=== PATIENT | female | born 1930 | race Caucasian/White ===

== ENCOUNTER 2016-11-04 03:05 | Inpatient (IN) | payer MEDICARE ==
[2016-11-04] MEDS ORDERED: PHYTONADIONE 10 MG/ML AMP PO ONE (05:52)
[2016-11-04] MEDS ORDERED: PHYTONADIONE 10 MG/ML AMP ONE (06:05)
[2016-11-04] MEDS ORDERED: ACETAMINOPHEN 325 MG TABLET PO PRN (06:26)
[2016-11-04] MEDS ORDERED: ONDANSETRON ODT 4 MG TABLET TL PRN (06:26)
[2016-11-04] MEDS ORDERED: HYDROcod/ACETAM 5/325 MG TABLET PO PRN (06:26)
[2016-11-04] MEDS ORDERED: ONDANSETRON 4 MG/2 ML VIAL IVP PRN (06:26)
[2016-11-04] MEDS ORDERED: PANTOPRAZOLE 40 MG TABLET PO SCH (07:00)
[2016-11-04] MEDS: DEXTROSE 5%-0.9% NACL 1,000 ML IV SCH ×3 (08:34→22:37)
[2016-11-04] MEDS: IPRATROPIUM/ALBUTEROL 3 ML NEB INH SCH ×3 (09:41→21:10)
[2016-11-04] MEDS: POLYETHYLENE GLYCOL 3350 17 GM PACKET PO SCH (09:43)
[2016-11-04] MEDS: PANTOPRAZOLE 40 MG VIAL IVP SCH ×2 (09:51→22:07)
[2016-11-04] MEDS: SODIUM CHLORIDE FLUSH 0.9% 10 ML SYRINGE IVP PRN ×3 (09:56→22:07)
[2016-11-04] MEDS ORDERED: IOPAMIDOL-300 50 ML VIAL PO ONE (10:54)
[2016-11-04] MEDS ORDERED: IOPAMIDOL-300 100 ML VIAL IVP ONE (10:54)
[2016-11-04] MEDS: AZITHROMYCIN 250 MG TABLET PO SCH (12:13)
[2016-11-04] MEDS ORDERED: PHYTONADIONE INJ (ADULT) 5 MG in SODIUM CHLORIDE 0.9% 50 ML IV ONE (15:00)
[2016-11-04] MEDS ORDERED: metroNIDAZOLE 500 MG/100 ML 100 ML IV SCH (15:30)
[2016-11-04] MEDS: SODIUM CHLORIDE FLUSH 0.9% 10 ML SYRINGE IVP SCH ×3 (15:50→22:37)
[2016-11-04] MEDS: cefTRIAXone 2 GM in SODIUM CHLORIDE 0.9% MINIBAG 100 ML IV SCH (17:11)
[2016-11-04] MEDS: metroNIDAZOLE 500 MG/100 ML 100 ML IV SCH (22:37)
[2016-11-05] MEDS: SODIUM CHLORIDE FLUSH 0.9% 10 ML SYRINGE IVP PRN ×3 (00:25→23:38)
[2016-11-05] MEDS: metroNIDAZOLE 500 MG/100 ML 100 ML IV SCH ×4 (05:23→23:38)
[2016-11-05] MEDS: IPRATROPIUM/ALBUTEROL 3 ML NEB INH SCH ×3 (07:55→20:10)
[2016-11-05] MEDS: DEXTROSE 5%-0.9% NACL 1,000 ML IV SCH ×2 (08:20→20:58)
[2016-11-05] MEDS ORDERED: cefTRIAXone 2 GM in SODIUM CHLORIDE 0.9% MINIBAG 100 ML IV SCH (09:00)
[2016-11-05] MEDS: AZITHROMYCIN 250 MG TABLET PO SCH (10:09)
[2016-11-05] MEDS: SODIUM CHLORIDE FLUSH 0.9% 10 ML SYRINGE IVP SCH ×2 (10:09→20:58)
[2016-11-05] MEDS: PANTOPRAZOLE 40 MG VIAL IVP SCH ×2 (10:09→20:58)
[2016-11-05] MEDS: cefTRIAXone 2 GM in SODIUM CHLORIDE 0.9% MINIBAG 100 ML IV SCH (10:11)
[2016-11-05] MEDS: POLYETHYLENE GLYCOL 3350 17 GM PACKET PO SCH (10:19)
[2016-11-06] MEDS: metroNIDAZOLE 500 MG/100 ML 100 ML IV SCH ×4 (05:28→21:57)
[2016-11-06] MEDS: SODIUM CHLORIDE FLUSH 0.9% 10 ML SYRINGE IVP SCH ×3 (05:28→21:50)
[2016-11-06] MEDS: AZITHROMYCIN 250 MG TABLET PO SCH (08:23)
[2016-11-06] MEDS: cefTRIAXone 2 GM in SODIUM CHLORIDE 0.9% MINIBAG 100 ML IV SCH (09:34)
[2016-11-06] MEDS: PANTOPRAZOLE 40 MG VIAL IVP SCH ×2 (09:34→21:50)
[2016-11-06] MEDS: DEXTROSE 5%-0.9% NACL 1,000 ML IV SCH ×2 (10:30→21:50)
[2016-11-06] MEDS: POLYETHYLENE GLYCOL 3350 17 GM PACKET PO SCH (10:31)
[2016-11-06] MEDS: IPRATROPIUM/ALBUTEROL 3 ML NEB INH SCH ×3 (11:00→21:10)
[2016-11-06] MEDS: SACCHAROMYCES BOULARDII 250 MG CAPSULE PO SCH (17:06)
[2016-11-06] MEDS ORDERED: POTASSIUM CHLORIDE 20 MEQ TABLET PO SCH (21:00)
[2016-11-06] MEDS: POTASSIUM CHLOR 10 MEQ/100 ML 100 ML IV SCH (23:46)
[2016-11-07] MEDS: metroNIDAZOLE 500 MG/100 ML 100 ML IV SCH ×2 (04:18→10:36)
[2016-11-07] MEDS: POTASSIUM CHLOR 10 MEQ/100 ML 100 ML IV SCH ×2 (05:28→13:14)
[2016-11-07] MEDS: SODIUM CHLORIDE FLUSH 0.9% 10 ML SYRINGE IVP SCH ×2 (05:33→15:43)
[2016-11-07] MEDS: cefTRIAXone 2 GM in SODIUM CHLORIDE 0.9% MINIBAG 100 ML IV SCH (10:19)
[2016-11-07] MEDS: AZITHROMYCIN 250 MG TABLET PO SCH (10:20)
[2016-11-07] MEDS: SODIUM CHLORIDE FLUSH 0.9% 10 ML SYRINGE IVP PRN (10:20)
[2016-11-07] MEDS: POLYETHYLENE GLYCOL 3350 17 GM PACKET PO SCH (10:20)
[2016-11-07] MEDS: PANTOPRAZOLE 40 MG VIAL IVP SCH (10:20)
[2016-11-07] MEDS: SACCHAROMYCES BOULARDII 250 MG CAPSULE PO SCH (10:20)
[2016-11-07] MEDS: DEXTROSE 5%-0.9% NACL 1,000 ML IV SCH ×2 (10:32→16:02)
[2016-11-07] MEDS: IPRATROPIUM/ALBUTEROL 3 ML NEB INH SCH (10:56)
[2016-11-07] MEDS ORDERED: POTASSIUM CHLORIDE 20 MEQ TABLET PO ONE (16:30)
== END 2016-11-07 16:35 | disposition home or self-care (01) | DRG 378 ==
DX: K57.31 Diverticulosis of large intestine without perforation or abscess with bleeding (principal); K92.1 Melena; I48.91 Unspecified atrial fibrillation; R64 Cachexia; F43.21 Adjustment disorder with depressed mood; Z63.4 Disappearance and death of family member; Z87.891 Personal history of nicotine dependence; J44.9 Chronic obstructive pulmonary disease, unspecified; I48.2 Chronic atrial fibrillation; Z79.01 Long term (current) use of anticoagulants; Z90.49 Acquired absence of other specified parts of digestive tract; Z82.3 Family history of stroke; Z80.9 Family history of malignant neoplasm, unspecified; Z83.79 Family history of other diseases of the digestive system; Z66 Do not resuscitate